=== PATIENT | male | born 1955 | race Caucasian/White ===

== ENCOUNTER 2017-08-25 15:32 | Outpatient (CLI) | payer OTHER ==
--- NOTE | 2017-08-25 17:08 | RAD ---
LUMBAR SPINE: 08/25/17 Four views. AP view, lateral view taken with neutral flexion and extension positions. HISTORY: Low back pain. Lumbar vertebrae maintain height and alignment. Mild loss disc space at L4-5 and L5-S1. No evidence o f spondylolisthesis. mild degenerative spurring through the lumbar vertebrae. Mild facet hypertrophy at L4-5 and L5-S1. No change in alignment noted with flexion or extension. IMPRESSION: There are mild degenerative changes of the lumbar spine as described. POS: [facility]
--- NOTE | 2017-08-25 17:15 | CT ---
CT LUMBAR SPINE: 08/25/17 Multiple axial tomograms obtained through the lumbar spine with multiplanar reconstruction. HISTORY: Low back pain. FINDINGS: The lumbar vertebrae maintain normal height and alignment. Disc spaces are relatively well maintained throughout. No evidence of spondylolisthesis or spondylolysis. At L1-2, there are mild disc bulge. No central canal or foraminal stenosis. At L2-3, mild disc bulge. Facet and ligamentous hypertrophy is more prominent. These changes result i n mild to moderate central canal stenosis at this level. At L3-4, mild diffuse disc bulge. Facet and ligamentous hypertrophy is prominent. Moderate to severe central canal stenosis. At L4-5, a prominent diffuse disc bulge/broad based protrusion which flattens the thecal sac and is a ssociated with facet and ligamentous hypertrophy resulting in moderate to severe central canal stenos is. Left foraminal encroachment due to diffuse disc bulge and facet hypertrophy. At L5-S1, no significant disc bulge or protrusion. No central canal or foraminal stenosis. IMPRESSION: Moderate to severe central canal stenosis at L4-5 and L3-4 as described above. Moderate central canal stenosis at L2-3. POS: [facility]
== END 2017-08-25 15:33 | disposition home or self-care (01) ==
LOC: TBSIIMAG 15:32
PROVIDERS: ATTEND Surgery
DX: S32.009A Unspecified fracture of unspecified lumbar vertebra, initial encounter for closed fracture (principal); M54.5 Low back pain; M48.061 Spinal stenosis, lumbar region without neurogenic claudication; M47.896 Other spondylosis, lumbar region
CPT/HCPCS: 72120; 72131

== ENCOUNTER 2017-10-18 07:40 | Outpatient (CLI) | payer OTHER | END 2017-10-18 07:41 | disposition home or self-care (01) | LOC: BICULT 07:40 | PROVIDERS: ATTEND Internal Medicine Nephrology | DX: I12.9 Hypertensive chronic kidney disease with stage 1 through stage 4 chronic kidney disease, or unspecified chronic kidney disease (principal); E11.22 Type 2 diabetes mellitus with diabetic chronic kidney disease; N18.2 Chronic kidney disease, stage 2 (mild); I25.10 Atherosclerotic heart disease of native coronary artery without angina pectoris; E78.5 Hyperlipidemia, unspecified; R80.9 Proteinuria, unspecified; M54.5 Low back pain; G89.29 Other chronic pain; M19.90 Unspecified osteoarthritis, unspecified site; Z85.828 Personal history of other malignant neoplasm of skin | CPT/HCPCS: 76700 ==

== ENCOUNTER 2018-05-06 10:21 | Outpatient (CLI) | payer MEDICARE, OTHER ==
--- NOTE | 2018-05-06 12:51 | MRI ---
MRI LUMBAR SPINE: 05/06/2018 COMPARISON: 08/25/2017 TECHNIQUE: Multiplanar, multisequence, noncontrast enhanced MR images of the lumbar spine obtained. RADIOGRAPHIC FINDINGS: T12-L1: Unremarkable. L1-L2: There is some disk desiccation. There is a large, central disk extrusion. The extruded mate rial extends from the L1-L2 disk space, inferiorly, into the anterior L2 epidural space. This is a c ylindrical volume of extruded disk. The superior-inferior direction length is 2.8 cm. The axial dim ensions are 0.9 x 0.7 cm. The central disk extrusion compresses the thecal sac and the anterior aspe ct of the L2 epidural space. The central canal is patent. L2-L3: There is mild facet hypertrophy. Mild neural foraminal narrowing is seen. L3-L4: Disk desiccation is seen. There is a broad-based disk bulge with bilateral facet and ligamen stefano flavum hypertrophy. This results in a moderate degree of central and lateral recess stenosis. T here is moderate bilateral neural foraminal narrowing seen. L4-L5: Disk desiccation is seen. There is a broad-based disk protrusion, minimally but not signific antly compressing the thecal sac, with moderate left L4-L5 lateral recess stenosis. There is mild bi lateral neural foraminal narrowing seen. L5-S1: Mild facet hypertrophy is seen. The central canal and neural foramen are patent. IMPRESSION: 1. Left L4-L5 paracentral and lateral recess disk protrusion. 2. Broad-based central disk bulge with bilateral facet hypertrophy and moderate central and lateral recess stenosis and L3-L4. 3. Large central disk extrusion extending from L1-L2, inferiorly, along the anterior aspect of the e pidural space. POS: [facility]
== END 2018-05-06 10:22 | disposition home or self-care (01) ==
LOC: TBSIIMAG 10:21
PROVIDERS: ATTEND Surgery
DX: M54.5 Low back pain (principal); M51.26 Other intervertebral disc displacement, lumbar region; M51.86 Other intervertebral disc disorders, lumbar region; M48.061 Spinal stenosis, lumbar region without neurogenic claudication
CPT/HCPCS: 72148

== ENCOUNTER 2021-05-27 12:19 | Outpatient (CLI) | payer MEDICARE, BC | END 2021-05-27 12:20 | disposition home or self-care (01) | LOC: TBSIIMAG 12:19 | PROVIDERS: ATTEND Surgery | DX: M47.26 Other spondylosis with radiculopathy, lumbar region (principal); M51.16 Intervertebral disc disorders with radiculopathy, lumbar region; M43.16 Spondylolisthesis, lumbar region; M48.061 Spinal stenosis, lumbar region without neurogenic claudication | CPT/HCPCS: 72110; 72148 ==